=== PATIENT | female | born 2000 | race Caucasian/White ===

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

== ENCOUNTER 2019-01-29 16:52 | Emergency (ER) | payer MEDICAID ==
[2019-01-29 16:53] VITALS: BMI 25.4
[2019-01-29 16:57] VITALS: BP 118/79; PULSE 87; TEMP 98.7; O2SAT 99
--- NOTE | 2019-01-29 17:55 | C.PDOC ---
History Of Present Illness 18 year old female with history of anxiety and migraines presents to the ED complaining of intermittent lower abdominal pain for 2 weeks. Admits to constipation but denies any nausea, vomiting, diarrhea, chest pain, shortness of breath, or urinary symptoms. Patient reports a history of migraine and complains of headache. Denies any photophobia or vision changes. Reports using friend's medical marijuana relieves her [place] pain as she lives with boyfriend's family and they do not like to have other medications in the house. LMP: 01/07/19 Time Seen by Provider: 01/29/19 17:06 Chief Complaint (Nursing): Abdominal Pain History Per: Patient History/Exam Limitations: no limitations Onset/Duration Of Symptoms: Days Current Symptoms Are (Timing): Still Present Location Of Pain/Discomfort: Suprapubic Quality Of Discomfort: "Pain" Associated Symptoms: Constipation. denies: Fever, Chills, Nausea, Vomiting, Loulou rrhea, Back Pain, Chest Pain Last Menstral Period: 01/07/19 Past Medical History Reviewed: Historical Data, Nursing Documentation, Vital Signs Vital Signs: Last Vital Signs Temp 98.7 F 01/29/19 16:54 Pulse 87 01/29/19 16:54 Resp 18 01/29/19 16:54 BP 118/79 01/29/19 16:54 Pulse Ox 99 01/29/19 16:54 Primary Care Provider: Deidre Velasco - Medical History PMH: Anxiety, Asthma Surgical History: No Surg Hx Family History: States: No Known Family Hx - Social History Hx Alcohol Use: No Hx Substance Use: No - Immunization History Hx Tetanus Toxoid Vaccination: No Hx Influenza Vaccination: Yes (2018) Hx Pneumococcal Vaccination: No Review Of Systems Except As Marked, All Systems Reviewed And Found Negative. Constitutional: Negative for: Chills Eyes: Negative for: Vision Change, Other (photophobia ) Cardiovascular: Negative for: Chest Pain Respiratory: Negative for: Cough, Shortness of Breath Gastrointestinal: Positive for: Abdominal Pain, Constipation. Negative for: Nausea, Vomiting, Diarrhea Genitourinary: Negative for: Dysuria, Hematuria Musculoskeletal: Negative for: Neck Pain Neurological: Positive for: Headache Physical Exam - Physical Exam Appears: Non-toxic, No Acute Distress Skin: Warm, Dry, No Rash Head: Normacephalic Eye(s): bilateral: Normal Inspection, PERRL, EOMI Nose: Normal Oral Mucosa: Moist Neck: Supple Chest: Symmetrical Cardiovascular: Rhythm Regular Respiratory: Normal Breath Sounds, No Rales, No Rhonchi, No Wheezing Gastrointestinal/Abdominal: Soft, No Tenderness Neurological/Psych: Oriented x3, Normal Speech Gait: Steady ED Course And Treatment O2 Sat by Pulse Oximetry: 99 (RA) Pulse Ox Interpretation: Normal Medical Decision Making Medical Decision Making: Plan - Imitrex 6mg SC - HCG - UA Discussed treatment options for migraines but patient declined home medication, discussed conservative at home treatment. Counseled on use of medical marijuana vs drug abuse. Patient stable, UA normal, with benign abdominal exam, discussed return precautions. After all labs resulted and just prior to receiving discharge instructions, patient left ED before signing discharge papers. Disposition - Disposition Disposition: HOME/ ROUTINE Disposition Time: 19:05 Condition: STABLE Instructions: Migraine Headaches in Adults Forms: [employer] (Bulgarian) - POA Present On Arrival: None - Clinical Impression Clinical Impression: Migraine, Abdominal pain - PA / [employer] SALES CONSULTANT / Resident Statement MD/DO has reviewed & agrees with the documentation as recorded. - Scribe Statement The provider has reviewed the documentation as recorded by the Scribe Shanon Zavala All medical record entries made by the Hafsa were at my direction and personally dictated by me. I have reviewed the chart and agree that the record accurately reflects my personal performance of the history, physical exam, medical decision making, and the department course for this patient. I have also personally directed, reviewed, and agree with the discharge instructions and disposition.
[2019-01-29 18:48] LABS: HCG,QUALITATIVE URINE NEGATIVE (NEGATIVE)
[2019-01-29 18:55] LABS: SQUAMOUS EPITHIAL 3 /hpf (0-5); URINE BACTERIA RARE (<OCC); URINE BILIRUBIN NEGATIVE (NEGATIVE); URINE BLOOD NEGATIVE (NEGATIVE); URINE CLARITY Clear (Clear); URINE COLOR Yellow (YELLOW); URINE GLUCOSE (UA) NORMAL (Normal); URINE LEUKOCYTE ESTERASE NEG Leu/uL (Negative); URINE PROTEIN NEGATIVE (NEGATIVE); URINE UROBILINOGEN NORMAL mg/dL (0.2-1.0)
[2019-01-29 19:20] VITALS: RESP 20
== END 2019-01-29 19:20 | disposition left against medical advice (07) ==
LOC: C.ER 16:52
DX: G43.909 Migraine, unspecified, not intractable, without status migrainosus (principal); R10.30 Lower abdominal pain, unspecified